=== PATIENT | female | born 1960 | race Caucasian/White ===

== ENCOUNTER 2021-01-04 19:40 | Emergency (ER) | payer BC, OTHER ==
[2021-01-04 19:50] VITALS: BP 125/73; PULSE 80; TEMP 98.2; BMI 21.4
== END 2021-01-04 21:22 | disposition home or self-care (01) ==
LOC: FER 19:40
DX: S16.1XXA Strain of muscle, fascia and tendon at neck level, initial encounter (principal); S46.011A Strain of muscle(s) and tendon(s) of the rotator cuff of right shoulder, initial encounter
CPT/HCPCS: 72050-TC-FY; 73030-TC-RT-FY; 99284-25

== ENCOUNTER 2023-09-25 07:48 | Emergency (ER) | payer SELFPAY ==
[2023-09-25] MEDS ORDERED: FAMOTIDINE 20 MG TABLET PO ONE (08:01)
[2023-09-25] MEDS ORDERED: predniSONE 20 MG TABLET (UD) PO ONE (08:01)
[2023-09-25] MEDS ORDERED: predniSONE 20 MG TABLET (UD) ONE (08:11)
[2023-09-25] MEDS ORDERED: FAMOTIDINE 20 MG TABLET ONE (08:12)
[2023-09-25 08:20] VITALS: BP 116/75; PULSE 98; RESP 16; TEMP 98.1; BMI 21.9
== END 2023-09-25 09:08 | disposition home or self-care (01) ==
LOC: FER 07:48
DX: R21 Rash and other nonspecific skin eruption (principal); L29.9 Pruritus, unspecified; H57.89 Other specified disorders of eye and adnexa; T78.40XA Allergy, unspecified, initial encounter
CPT/HCPCS: 99283-25

== ENCOUNTER 2025-06-02 09:34 | Emergency (ER) | payer OTHER ==
[2025-06-02 09:45] VITALS: BP 152/78; PULSE 75; RESP 18; TEMP 98.4; BMI 22.3
[2025-06-02] MEDS ORDERED: ACETAMINOPHEN 325 MG TABLET (FP) ONE (10:13)
[2025-06-02] MEDS ORDERED: IBUPROFEN 400 MG TABLET (FP) PO ONE (10:13)
[2025-06-02] MEDS: IBUPROFEN 400 MG TABLET (FP) PO ONE (10:20)
[2025-06-02] MEDS: ACETAMINOPHEN 325 MG TABLET (FP) PO ONE (10:21)
[2025-06-02 11:22] LABS: ABSOLUTE IMMATURE GRANULOCYTES 0.01 x10^3/uL (0.0-0.031); BASOPHILS # 0.02 x10^3/uL (0.01-0.08); EOSINOPHIL % 0.6 % (0.7-5.8); EOSINOPHILS # 0.06 x10^3/uL (0.04-0.36); MCHC 31.7 g/dl (32.2-35.5); MEAN CELL VOLUME 88.6 fl (79.4-94.8); MEAN PLT VOLUME 11.0 fl (9.4-12.3); MONOCYTE # 0.47 x10^3/uL (0.24-0.86); MONOCYTE % 4.8 % (4.7-12.5); RDW 12.1 % (12.4-16.4)
[2025-06-02 11:32] LABS: ALK PHOS 104 U/L (45-117); CO2 28 mmol/L (21-32); CREATININE 0.7 mg/dl (0.6-1.3); GLUCOSE,RANDOM 152 mg/dl (74-106); SGOT/AST 27 U/L (15-37); SGPT/ALT 33 U/L (7-52); TOT PROT 7.6 g/dl (6.4-8.2)
[2025-06-02 13:19] LABS: HIV INTERPRETATION NEGATIVE (NEGATIVE)
[2025-06-02 13:21] LABS: HCV DIAGNOSTIC IN-HOUSE W/RFLX NON-REACTIVE (NONREACTIVE)
== END 2025-06-02 12:54 | disposition home or self-care (01) ==
LOC: FER 09:34
DX: R07.89 Other chest pain (principal); F43.9 Reaction to severe stress, unspecified; M54.6 Pain in thoracic spine
CPT/HCPCS: 36415; 71046-TC-FY; 80053; 84484; 85025; 85379; 86803; 87389; 93005; 99285-25